=== PATIENT | female | born 1960 | race African-American/Black ===

== ENCOUNTER 2020-08-06 15:26 | Emergency (ER) | payer OTHER ==
[~2020-08-06] VITALS: Ht 165.1 cm; Wt 92.5 kg
[~2020-08-06 15:26] MED LIST: DUTOPROL 100-11 EACH; POTASSIUM20; REGLAN 10 MG TA10 M1 PO; TOPROL XL25 MG; ZESTRIL10 MG; ZOFRAN ODT4 MG PO
[2020-08-06 17:54] LABS: BASOPHILS 0.5 % (0.0-2.0); EOSINOPHILS 0.4 % (0.0-3.0); HEMATOCRIT 45.2 % (37.0-47.0); HEMOGLOBIN 14.9 gm/dL (12.0-15.0); LYMPHOCYTES 13.5 % (24.0-44.0); MCH 30.8 pg (26.0-34.0); MCHC 32.9 g/dL (28.0-37.0); MCV 93.4 fL (80.0-100.0); MONOCYTES 4.2 % (1.0-8.0); PLATELET COUNT 280 thou/uL (150-400); POLYS 81.4 % (36.0-66.0); RBC 4.83 mil/uL (4.20-5.00); RDW 13.5 % (10.5-14.5); WBC 9.8 thou/uL (4.0-11.0)
[2020-08-06 17:59] LABS: ANION GAP 11 mmol/L (7-16); BUN 16 mg/dL (7-18); CALCIUM 9.6 mg/dL (8.5-10.1); CHLORIDE 104 mmol/L (98-107); CO2 25 mmol/L (21-32); CREATININE 1.1 mg/dL (0.6-1.0); GLUCOSE 116 mg/dL (74-106); POTASSIUM 3.8 mmol/L (3.5-5.1); SODIUM 140 mmol/L (136-145)
[2020-08-06 18:10] LABS: ALBUMIN 4.5 g/dL (3.4-5.0); LIPASE 50 U/L (73-393); MAGNESIUM 2.1 mg/dL (1.8-2.4); SGOT 22 U/L (15-37); SGPT 36 U/L (14-59); TOTAL BILIRUBIN 0.4 mg/dL (0.2-1.0); TOTAL PROTEIN 7.9 g/dL (6.4-8.2); TROPONIN-I <0.06 ng/mL (<0.06)
[2020-08-06] MEDS ORDERED: OMEPRAZOLE 20 M20 M1 PO (19:23)
[2020-08-06] MEDS ORDERED: CARAFATE 1 GM TA1 G1 PO (19:23)
[2020-08-06 20:54] VITALS: BP 136/74
[2020-08-06 21:11] LABS: URINE BILIRUBIN NEGATIVE (Negative); URINE BLOOD NEGATIVE (Negative); URINE CLARITY SL CLOUDY; URINE COLOR YELLOW; URINE GLUCOSE-RANDOM* NEGATIVE (Negative); URINE KETONES NEGATIVE (Negative); URINE LEUKOCYTES-REFLEX NEGATIVE (Negative); URINE NITRITE-REFLEX POSITIVE (Negative); URINE PROTEIN (DIPSTICK) 1+ (Negative); URINE SPECIFIC GRAVITY 1.025 (1.005-1.035); URINE UROBILINOGEN 0.2 E.U./dl (0.2-1.0)
[2020-08-06 21:46] LABS: CASTS None Seen /LPF (None Seen); MUCUS 0-3 Light strn/LPF (None Seen); SQUAMOUS None Seen /LPF (0-3)
[2020-08-06 21:47] LABS: BACTERIA-REFLEX >30 Many /HPF (None Seen); CRYSTALS None Seen /LPF (None Seen); URINE RBC None Seen /HPF (0-2); URINE WBC-REFLEX 0-5 Rare /HPF (0-5)
--- NOTE | 2020-08-07 15:13 | EKG ---
[place] [address] [facility] [place] [address] ELECTROCARDIOGRAM REPORT Name: ELIESER FRANKS [id number] Admission: 08/06/20 Attend Phys: Discharge: 08/06/20 Date of : 60 Report #: [id number] [facility] ED Test Date: 2020-08-06 Test Time: 15:30:07 Pat Name: ELIESER FRANKS Department: Room: Gender: F Upper Doubler: MYKE : 1960 Requested By: Austin Thomson Order Number: [id number] MD: Raúl Woodward Measurements Intervals [place] Rate: 65 P: 33 [place]: 201 QRS: 10 QRSD: 155 T: 82 QT: 464 QTc: 483 Interpretive Statements Sinus rhythm Left bundle branch block No previous ECG available for comparison Electronically Signed On 08-07-2020 15:13:05 SYSTEMS SOFTWARE ENGINEER by Raúl Woodward [email or web address] <ELECTRONICALLY SIGNED> By: Raúl Woodward MD, [facility] 08/07/20 1513 1530 1530 Raúl Woodward MD, FACC /EPI
== END 2020-08-06 21:20 | disposition home or self-care (01) ==
LOC: ER 15:26
PROVIDERS: Emergency Medicine
DX: K29.70 Gastritis, unspecified, without bleeding (principal); K21.9 Gastro-esophageal reflux disease without esophagitis; I10 Essential (primary) hypertension; Z79.899 Other long term (current) drug therapy

== ENCOUNTER 2021-05-13 10:41 | Inpatient (IN) | payer OTHER ==
[~2021-05-13] VITALS: Ht 165.1 cm; Wt 93.2 kg
--- NOTE | ~2021-05-13 | O ---
[facility] [place] [address] OPERATIVE REPORT Name: ELIESER FRANKS Room #: 362-P ADM IN M.R.#: [id number] Admission: 05/13/21 Attend Phys: Nelda Coronel MD Discharge: Date of : 60 Report #: [id number] THIS REPORT FOR: cc: Physician not on staff Physician not on staff Dylan Kendrick MD ~ DATE OF SERVICE: 05/15/2021 PREOPERATIVE DIAGNOSIS: Cholelithiasis. POSTOPERATIVE DIAGNOSIS: Acute cholecystitis. OPERATION: Laparoscopic cholecystectomy. SURGEON: Dylan Kendrick MD ANESTHESIA: General. ESTIMATED BLOOD LOSS: Minimal. SPECIMENS: Gallbladder. DESCRIPTION OF PROCEDURE: After informed consent was obtained, the patient was brought to the operating room and placed supine. SCDs were placed and working, preoperative antibiotics were administered, general anesthesia was induced. The abdomen was prepped and draped in the usual sterile fashion. A 10 mm incision was made above the umbilicus. Fascia was incised and a trocar was placed. Pneumoperitoneum was established. Three right upper quadrant 5 mm ports were placed under direct vision. The gallbladder was grasped and retracted cephalad. Infundibulum was grasped and retracted laterally. I was able to dissect out the cystic duct and cystic artery. The gallbladder was inflamed, edematous and tense consistent with cholecystitis. Cystic plate was identified. Cystic duct and artery were clipped and ligated leaving 2 clips on the remaining duct and one on the remaining artery. Gallbladder was then taken off the liver bed with electrocautery. It was placed into an Endopouch and removed. The fascia was then closed with a [id number] 0 Vicryl. Skin was closed with 4-0 Monocryl. Incisions were dressed with Steri-Strips. COMPLICATIONS: None. DISPOSITION: The patient was taken to recovery in satisfactory condition. By: 1216 1224 Dylan Kendrick MD /nt
[~2021-05-13 10:41] MED LIST changes: +CARAFATE 1 GM TA1 G1 PO; +OMEPRAZOLE 20 M20 M1 PO
[2021-05-13 10:57] VITALS: BP 152/83
[2021-05-13 11:43] LABS: ABSOLUTE NEUTROPHILS 8.6 thou/uL (1.4-8.2); BASOPHILS 0.4 % (0.0-2.0); HEMATOCRIT 41.2 % (37.0-47.0); HEMOGLOBIN 13.7 gm/dL (12.0-15.0); LYMPHOCYTES 7.4 % (24.0-44.0); MCH 31.1 pg (26.0-34.0); MCHC 33.4 g/dL (28.0-37.0); MCV 93.1 fL (80.0-100.0); PLATELET COUNT 236 thou/uL (150-400); POLYS 88.2 % (36.0-66.0); RBC 4.42 mil/uL (4.20-5.00); RDW 13.7 % (10.5-14.5); WBC 9.8 thou/uL (4.0-11.0)
[2021-05-13 11:46] LABS: ANION GAP 11 mmol/L (7-16); BUN 12 mg/dL (7-18); CALCIUM 9.3 mg/dL (8.5-10.1); CHLORIDE 106 mmol/L (98-107); CO2 23 mmol/L (21-32); CREATININE 0.9 mg/dL (0.6-1.0); GLUCOSE 157 mg/dL (74-106); POTASSIUM 3.6 mmol/L (3.5-5.1); SODIUM 140 mmol/L (136-145)
[2021-05-13 11:58] LABS: ALBUMIN 4.1 g/dL (3.4-5.0); SGOT 19 U/L (15-37); SGPT 33 U/L (14-59); TOTAL BILIRUBIN 0.5 mg/dL (0.2-1.0); TOTAL PROTEIN 7.4 g/dL (6.4-8.2)
[2021-05-13] MEDS ORDERED: LIPITOR10 MG PO (14:17)
[2021-05-13] MEDS ORDERED: TOPROL XL25 MG PO (14:17)
[2021-05-13] MEDS ORDERED: NORVASC10 MG PO (14:18)
[2021-05-13] MEDS ORDERED: VALSARTAN-HCTZ1 EAC3 PO (14:18)
[2021-05-13] MEDS ORDERED: CALCIUM + D3 E1 EACH PO (14:18)
--- NOTE | 2021-05-13 15:35 | EKG ---
[address] [place] [address] ELECTROCARDIOGRAM REPORT Name: ELIESER FRANKS Room #: 170-2 ADM IN M.R.#: [id number] Admission: 05/13/21 Attend Phys: Nelda Coronel MD Discharge: Date of : 60 Report #: [id number] [facility] ED Test Date: 2021-05-13 Test Time: 10:50:30 Pat Name: ELIESER FRANKS Department: Room: 170 2 Gender: F Housing Development Specialist: marty : 1960 Requested By: Nelda Coronel Order Number: [id number] MD: Yandel Frias Measurements Intervals [place] Rate: 86 P: [place]: QRS: 15 QRSD: 157 T: 193 QT: 391 QTc: 468 Interpretive Statements Atrial fibrillation Left bundle branch block Compared to ECG 08/06/2020 15:30:07 Sinus rhythm no longer present Electronically Signed On 05-13-2021 15:35:08 CDT by Yandel Frias [email or web address] <ELECTRONICALLY SIGNED> By: Yandel Frias MD, [facility] 05/13/21 1535 1050 1050 Yandel Frias MD, FACC /EPI
[2021-05-13 17:00] VITALS: BP 141/81
[2021-05-13 17:08] VITALS: BP 129/78
[2021-05-13 19:50] VITALS: BP 151/81
[2021-05-14 03:45] VITALS: BP 140/69
[2021-05-14 06:43] LABS: ABSOLUTE NEUTROPHILS 10.5 thou/uL (1.4-8.2); BASOPHILS 0.2 % (0.0-2.0); HEMATOCRIT 38.8 % (37.0-47.0); HEMOGLOBIN 13.3 gm/dL (12.0-15.0); LYMPHOCYTES 10.3 % (24.0-44.0); MCH 31.5 pg (26.0-34.0); MCHC 34.2 g/dL (28.0-37.0); MONOCYTES 6.8 % (1.0-8.0); PLATELET COUNT 215 thou/uL (150-400); POLYS 82.7 % (36.0-66.0); RBC 4.21 mil/uL (4.20-5.00); RDW 13.2 % (10.5-14.5); WBC 12.8 thou/uL (4.0-11.0)
[2021-05-14 07:00] LABS: CHOLESTEROL 103 mg/dL (<200); HDL CHOLESTEROL 34 mg/dL (>40); LDL CHOLESTEROL 4 mg/dL (<100); TRIGLYCERIDE 327 mg/dL (<150); VLDL 65 mg/dL (<40)
[2021-05-14 07:02] LABS: ALBUMIN 3.6 g/dL (3.4-5.0); CALCIUM 8.5 mg/dL (8.5-10.1); CREATININE 0.9 mg/dL (0.6-1.0); PHOSPHORUS 2.6 mg/dL (2.5-4.9); POTASSIUM 3.4 mmol/L (3.5-5.1); TOTAL BILIRUBIN 0.9 mg/dL (0.2-1.0); TOTAL PROTEIN 6.9 g/dL (6.4-8.2)
[2021-05-14 07:05] LABS: SERUM ASSESSMENT Clear
[2021-05-14 07:09] LABS: GLYCOHEMOGLOBIN (HGB A1C) 5.7 % (4.8-5.6)
[2021-05-14 07:29] VITALS: BP 132/70
--- NOTE | 2021-05-14 07:34 | NUR ---
PT MAKING SLOW PROGRESS TOWARDS GOALS. PT WAS GIVEN MORPHINE PER ORDERS X2 OVERNIGHT FOR C/O EPIGASTRIC PAIN. PT REPORTED GOOD AMOUNT OF RELIEF AFTER BEING DOSED. SEE CHARTING.
--- NOTE | 2021-05-14 08:05 | 2DMMODE ---
[facility] [place] [address] 2 D/M-MODE ECHOCARDIOGRAM Name: ELIESER FRANKS Room #: 362-P ADM IN M.R.#: [id number] Admission: 05/13/21 Attend Phys: Nelda Coronel MD Discharge: Date of : 60 Report #: [id number] THIS REPORT FOR: cc: Physician not on staff Physician not on staff Yandel Frias MD [facility] ~ APPROVED REPORT Study performed: 05/14/2021 07:00:18 EXAM: Comprehensive 2D, Doppler, and color-flow Echocardiogram Patient Location: Bedside Room #: [facility] Status: routine BSA: 1.98 HR: 80 bpm BP: 140/69 mmHg Rhythm: LBBB Other Information Study Quality: Good Indications Chest pain, new onset Afib. Hx: Tobacco abuse, HTN, HLP. 2D Dimensions IVSd: 9.51 (7-11mm) LVOT Diam: 20.36 (18-24mm) LVDd: 53.95 mm PWd: 10.59 (7-11mm) Ascending Ao: 34.36 (22-36mm) LVDs: 37.15 (25-40mm) Left Atrium: 38.14 (27-40mm) Aortic Root: 31.96 mm Volumes Left Atrial Volume (Systole) Single Plane 4CH: 45.02 mL Single Plane 2CH: 58.42 mL LA ESV Index: 27.00 mL/m2 Aortic Valve AoV Peak [place].: 1.91 m/s AO Peak Gr.: 14.64 mmHg LVOT Max P.58 mmHg LVOT Max V: 1.46 m/s KJ Vmax: 2.49 cm2 [facility] [address] [place] [address] 2 D/M-MODE ECHOCARDIOGRAM Name: ELIESER FRANKS Room #: 362-P [facility] IN [facility]#: [id number] Admission: 05/13/21 Attend Phys: Nelda Coronel, Discharge: Date of : 60 Report #: [id number] Mitral Valve E/A Ratio: 0.8 MV Decel. Time: 249.15 ms MV E Max [place].: 1.04 m/s MV A [place].: 1.35 m/s MV PHT: 72.25 ms IVRT: 62.28 ms Pulmonary Valve PV Peak [place].: 1.36 m/s PV Peak Gr.: 7.37 mmHg Tricuspid Valve TR Peak [place].: 2.65 m/s RAP Estimate: 5.00 mmHg TR Peak Gr.: 28.13 mmHg PA Pressure: 33.00 mmHg Left Ventricle The left ventricle is normal size. Paradoxical septal motion consistent bundle branch block. There is normal left ventricular wall thickness. Left ventricular systolic function is normal. LVEF is 50%. Mild diastolic dysfunction is present (impaired relaxation pattern). Right Ventricle The right ventricle is normal size. The right ventricular systolic function is normal. Atria The left atrium size is normal. The right atrium size is normal. Aortic Valve The aortic valve is normal in structure. No aortic regurgitation is present. There is no aortic valvular stenosis. Mitral Valve The mitral valve is normal in structure. There is no mitral valve regurgitation noted. No evidence of mitral valve stenosis. Tricuspid Valve The tricuspid valve is normal in structure. Trace tricuspid regurgitation. Estimated PAP is 33mmHg. Pulmonic Valve The pulmonary valve is normal in structure. There is no pulmonic [facility] [place] [address] 2 D/M-MODE ECHOCARDIOGRAM Name: ELIESER FRANKS Brian Room #: 362-P [facility] IN .R.#: [id number] Admission: 05/13/21 Attend Phys: Nelda Coronel, Discharge: Date of : 60 Report #: [id number] valvular regurgitation. Great Vessels The aortic root is normal in size. The ascending aorta is normal in size. IVC is normal in size and collapses >50% with inspiration. Pericardium There is no pericardial effusion. <Conclusion> Normal left ventricular size/wall thickness Ejection fraction 50% Grade 1 diastolic dysfunction Mild anteroseptal hypokineses Normal right ventricle size/function Normal aortic/mitral valve structure and function Mild tricuspid valve insufficiency Pulmonary systolic pressure estimated 33 mmHg Normal aortic root size No pericardial effusion <ELECTRONICALLY SIGNED> By: Yandel Frias MD, FACC 05/14/21803 3 3 Yandel Frias MD, [facility] /INF
--- NOTE | 2021-05-14 11:00 | NUR ---
INITIAL ASSESSMENT: REJI reviewed chart and spoke with nursing and attending physician. Pt was admitted from home due to gallstone/A-fib. Cardiology consulted. Pt to have echo and cardiac workup prior to surgery. Lap donovan is anticipated for tomorrow. REJI met with pt at bedside. Introduced role of SW. Pt is alert/orientated x 4. Pt reports she lives at [facility] with her dtr. Prior to admission, pt was independent with ADLs. No use of DME for ambulation. Pt has a cpap machine that she uses at . Cpap machine is through [employer]. Pt states she has had the cpap for over 5 years and would like a new one. SW encouraged pt to contact [employer] to arrange for a tech to come look at her cpap and assist with ordering a new one. Pt verbalized understanding. No hx of services or post-acute placement. Pt may be ready to discharge home on Monday. No discharge needs identified at this time. SW is available to assist should needs arise.
[2021-05-14 12:33] VITALS: BP 152/78
[2021-05-14 15:42] VITALS: BP 129/72
[2021-05-14 15:58] VITALS: BP 129/72
[2021-05-14 19:54] VITALS: BP 133/79
[2021-05-15] VITALS (13 sets, daily range): BP systolic 111–154; BP diastolic 66–84
[2021-05-16 00:56] VITALS: BP 126/68
[2021-05-16 04:41] VITALS: BP 126/71
[2021-05-16 06:24] LABS: ABSOLUTE NEUTROPHILS 11.5 thou/uL (1.4-8.2); BASOPHILS 0.8 % (0.0-2.0); HEMATOCRIT 36.9 % (37.0-47.0); HEMOGLOBIN 12.3 gm/dL (12.0-15.0); MCH 30.9 pg (26.0-34.0); MCHC 33.4 g/dL (28.0-37.0); MCV 92.6 fL (80.0-100.0); MONOCYTES 9.2 % (1.0-8.0); PLATELET COUNT 212 thou/uL (150-400); RBC 3.99 mil/uL (4.20-5.00); RDW 13.2 % (10.5-14.5); WBC 13.7 thou/uL (4.0-11.0)
[2021-05-16 07:03] LABS: ALBUMIN 2.9 g/dL (3.4-5.0); CALCIUM 8.7 mg/dL (8.5-10.1); CREATININE 0.9 mg/dL (0.6-1.0); MAGNESIUM 2.5 mg/dL (1.8-2.4); POTASSIUM 4.1 mmol/L (3.5-5.1); TOTAL BILIRUBIN 0.7 mg/dL (0.2-1.0); TOTAL PROTEIN 6.9 g/dL (6.4-8.2)
--- NOTE | 2021-05-16 07:58 | NUR ---
PT MAKING SLOW PROGRESS TOWARDS GOALS. PT ON O2 AT 4L PER NC OVERNIGHT. THIS AM, O2 SAT ON ROOM AIR 90%. O2 AT 2L. PT PERFORMING I.S. BUT ONLY ABLE TO GET TO 500. HOURLY I.S. ENCOURAGED. CRACKLES NOTED IN BOTH BASES. PT VOICED UNDERSTANDING OF I.S. USE AND PREVENTION OF POST OP PNA. AMBULATION ENCOURAGED.
[2021-05-16 08:04] VITALS: BP 125/66
[2021-05-16 11:07] VITALS: BP 133/74
[2021-05-16 16:37] VITALS: BP 133/74
[2021-05-16] MEDS ORDERED: MIRALAX17 GM PO (17:48)
[2021-05-16] MEDS ORDERED: HYDROCODON-ACE1 EAC7 PO (17:51)
--- NOTE | 2021-05-20 17:07 | PATH ---
[facility] [address] [place] [address] PATHOLOGY RPT PROCEDURE Name: ELIESER FRANKS Room #: 362-P DIS IN M.R.#: [id number] Admission: 05/13/21 Date of : 60 Discharge: 05/16/21 Report #: [id number] Path Case #: [id number] [facility] Accession Number: [id number] . 01 Material submitted: . gallbladder - GALLBLADDER . 01 Clinical history: . LAPARSCOPIC CHOLECYSTECTOMY . 02 Diagnosis: Gallbladder, lymph node, and liver tissue, "gallbladder", cholecystectomy: - Acute necrotizing on chronic cholecystitis with cholelithiasis. - Reactive appearing lymph node with follicular hyperplasia and scattered non-necrotizing epithelioid granulomas. - Attached liver with acute and chronic inflammation and reactive changes. - Negative for malignancy. - See comment. LBQ 05/20/2021 1510 Local . 02 Comment: AFB and GMS special stains were performed on block A3 and reveals the lymph node is negative for acid fast bacilli and fungal organisms, respectively. The overall findings could be seen in sarcoidosis or infection. Clinical correlation is recommended. There is no evidence of malignancy within the entire specimen. . This case has been co-reviewed by Dr. Lexis Farias on 05/19/2021 who agrees with the above diagnosis. (SCA/db; 05/20/2021) . 02 Electronically signed: . Jeet Patton DO, Pathologist NPI- [id number] . 01 Gross description: . Fixative: Formalin Labeled: Gallbladder Specimen received: Intact Dimensions: 10.5 x 4.6 x 3.3 cm Lymph node: 3.5 x 1.7 x 1.7 Serosa: Montejo-wen and brown, dusky, hemorrhagic and shaggy with at least two serosal disruptions (0.9 x 0.3 cm and 0.9 x 0.9 cm) Calculi: A whitman-yellow roughened stone (2.7 x 1.9 x 1.7 cm) Mucosa: Green-brown, dusky, hemorrhagic, granular and denuded Average wall thickness: Ranges from 0.5 cm to 1.9 cm Abnormalities: Attached at the dome is a wen-brown shaggy irregular [facility] [address] [place] [address] PATHOLOGY RPT PROCEDURE Name: ELIESER FRANKS Room #: 362-P [facility] IN M.R.#: [id number] Admission: 05/13/21 Date of : 60 Discharge: 05/16/21 Report #: [id number] Path Case #: [id number] portion of liver (3.0 x 1.7 x 1.0 cm) A1-A7: Gallbladder, represented to include the entirety of the lymph node submitted in A3-A5 and the entirety of the liver tissue submitted in A6-A7 (SANTO DOMINGO; 05/17/2021) DKA/DKA 05/17/2021 1528 Local . 02 Pathologist provided ICD-10: K80.12 . 02 CPT . 391268, [id number], [id number] Specimen Comment: Report sent to Performed at: 01 [facility] [address] [id number] MD Nva Contreras MD Phone: [phone] Performed at: 02 [facility] [address] [id number] MD Rikki Harris MD Phone: [phone]
== END 2021-05-16 18:58 | disposition home or self-care (01) | DRG 418 ==
LOC: ER 10:41 → EROBS 14:26 → 3W 14:26
PROVIDERS: Emergency Medicine; Nurse Practitioner; ADMIT Internal Medicine; ATTEND Internal Medicine
PROC: 3E02340 Introduction of Influenza Vaccine into Muscle, Percutaneous Approach (ICD-10-PCS; 2021-05-14)
PROC: 0FT44ZZ Resection of Gallbladder, Percutaneous Endoscopic Approach (ICD-10-PCS; principal; 2021-05-15)
DX: K80.00 Calculus of gallbladder with acute cholecystitis without obstruction (principal); K82.1 Hydrops of gallbladder; R65.10 Systemic inflammatory response syndrome (SIRS) of non-infectious origin without acute organ dysfunction; I48.91 Unspecified atrial fibrillation; I44.7 Left bundle-branch block, unspecified; E78.5 Hyperlipidemia, unspecified; D86.9 Sarcoidosis, unspecified; R79.89 Other specified abnormal findings of blood chemistry; I11.9 Hypertensive heart disease without heart failure; K82.8 Other specified diseases of gallbladder; F17.210 Nicotine dependence, cigarettes, uncomplicated; R00.0 Tachycardia, unspecified; E87.6 Hypokalemia; G47.33 Obstructive sleep apnea (adult) (pediatric); I25.10 Atherosclerotic heart disease of native coronary artery without angina pectoris; G47.30 Sleep apnea, unspecified; R16.0 Hepatomegaly, not elsewhere classified; K59.00 Constipation, unspecified; I07.1 Rheumatic tricuspid insufficiency; F12.90 Cannabis use, unspecified, uncomplicated; K21.9 Gastro-esophageal reflux disease without esophagitis; Z20.822 Contact with and (suspected) exposure to COVID-19; Z95.0 Presence of cardiac pacemaker; Z79.899 Other long term (current) drug therapy; Z71.6 Tobacco abuse counseling; Z71.51 Drug abuse counseling and surveillance of drug abuser; I25.2 Old myocardial infarction; Z23 Encounter for immunization
CPT/HCPCS: 10879; 50010; 50101; 50411; 50555; 51489; 52265; 52266; 53307; 53312; 53314; 55245; 56462; 56525; 56526; 58574; 62110; 62900; 70005